=== PATIENT | female | born 1960 | race Caucasian/White ===

== ENCOUNTER → 2017-10-18 | Outpatient (CLI) | payer OTHER ==
[2017-09-17 11:10] VITALS: BMI 28.2
[~2017-10-18] MED LIST: ASPI81TA94 PO; ATOR10TA24 PO; CALC-488 PO; CHOL200059 PO; CIPR-214 PO; DOCO200C7 PO; FLUD0.1T12 PO; HYDR250V7 IJ; HYDROC5PT PO; MAGN250T34 PO
== END ==
LOC: LAB 09:43
PROVIDERS: ATTEND Internal Medicine
DX: E05.90 Thyrotoxicosis, unspecified without thyrotoxic crisis or storm (principal)
CPT/HCPCS: 36415; 84439; 84443; 84481

== ENCOUNTER → 2017-10-23 | Outpatient (CLI) | payer OTHER ==
[2017-09-17 11:10] VITALS: BMI 28.2
== END ==
LOC: LAB 08:36
PROVIDERS: ATTEND Internal Medicine
DX: E03.9 Hypothyroidism, unspecified (principal)
CPT/HCPCS: 36415; 83519; 84445

== ENCOUNTER → 2017-11-28 | Outpatient (CLI) | payer OTHER ==
[2017-09-17 11:10] VITALS: BMI 28.2
== END ==
LOC: LAB 08:04
PROVIDERS: ATTEND Internal Medicine
DX: E05.90 Thyrotoxicosis, unspecified without thyrotoxic crisis or storm (principal)
CPT/HCPCS: 36415; 82040; 82247; 82310; 82374; 82435; 82565; 82947; 84075; 84132; 84155; 84295; 84439; 84443; 84450; 84460; 84481; 84520

== ENCOUNTER → 2018-05-30 | Outpatient (CLI) | payer OTHER ==
[2017-09-17 11:10] VITALS: BMI 28.2
--- NOTE | 2018-05-31 11:45 | RADIOLOGY IMAGING REPORT ---
FACILITY: [facility] PATIENT NAME: GLENN HAMMOND : [id number] MR: [id number] V: [id number] EXAM DATE: [id number] ORDERING PHYSICIAN: ADI OROSCO TECHNOLOGIST: Sharon Ramirez PROCEDURE:BILATERAL DIGITAL SCREENING MAMMOGRAM WITH CAD ASSISTED INTERPRETATION & 3D TOMOSYNTHESIS COMPARISON:Prior mammograms 08/11/16, 06/30/13. INDICATIONS:SCREENING FINDINGS: Scattered fibroglandular tissue noted. There is a new 5mm asymmetry in the Right outer breast at middle depth seen on the CC view only. Otherwise no change compared to the prior. No suspicious microcalcification. DIAGNOSTIC CATEGORY 0--INCOMPLETE: NEED ADDITIONAL IMAGING EVALUATION. RECOMMENDATIONS: ADDITIONAL MAMMOGRAPHIC VIEWS REQUIRED: RIGHT BREAST. IMPRESSION: BIRADS 0: Incomplete. Needs additional imaging. Spot compression Right breast CC view, straight lateral Right breast view and Right breast Ultrasound (if needed) recommended for further evaluation. Dictated by: Baldomero Jaems on 05/31/2018 at 9:45 Transcribed by: YAHAIRA on 05/31/2018 at 9:58 Approved by: Baldomero Jamse on 05/31/2018 at 11:45 [facility]
== END ==
LOC: MAMO 01:50
PROVIDERS: ATTEND Physician Assistant
DX: Z12.31 Encounter for screening mammogram for malignant neoplasm of breast (principal); R92.8 Other abnormal and inconclusive findings on diagnostic imaging of breast
CPT/HCPCS: 77063; 77067

== ENCOUNTER → 2018-06-07 | Outpatient (CLI) | payer OTHER ==
[2017-09-17 11:10] VITALS: BMI 28.2
--- NOTE | 2018-06-10 08:23 | RADIOLOGY IMAGING REPORT ---
FACILITY: PATIENT NAME: GLENN HAMMOND : [id number] MR: [id number] V: [id number] EXAM DATE: ORDERING PHYSICIAN: ADI OROSCO TECHNOLOGIST: Danni Tejeda PROCEDURE:RIGHT DIGITAL DIAGNOSTIC MAMMOGRAM WITH CAD ASSISTED INTERPRETATION & 3D TOMOSYNTHESIS COMPARISON:Prior mammograms dated 05/30/18, 08/11/16, 06/30/13, 07/19/11 INDICATIONS:FURTHER EVAL FINDINGS: Patient returns for spot compression view in the Right CC projection. The small focal area of increased density in the lateral portion of the Right breast on the recent Right CC view appeared fully compressible & apparently represented a summation shadow. There was no demonstration of malignant appearing mass or calcification in the Right breast. DIAGNOSTIC CATEGORY 2--BENIGN FINDING. RECOMMENDATIONS: ROUTINE MAMMOGRAM AND CLINICAL EVALUATION. IMPRESSION: BIRADS 2: Benign finding. No significant abnormality is seen. Dictated by: Naomi Granados M.D. on 06/07/2018 at 15:16 Transcribed by: MARTIN on 06/07/2018 at 15:29 Approved by: Naomi Granados M.D. on 06/10/2018 at 8:23 [facility]
== END ==
LOC: MAMO 03:33
PROVIDERS: ATTEND Physician Assistant
DX: Z12.31 Encounter for screening mammogram for malignant neoplasm of breast (principal)
CPT/HCPCS: 77061; 77065

== ENCOUNTER 2019-03-27 22:36 | Emergency (ER) | payer OTHER ==
[2017-09-17 11:10] VITALS: Wt 85.3 kg
[~2019-03-27 22:36] MED LIST changes: -CALC-488 PO; +CALC-743 PO
[2019-03-27 23:00] VITALS: BP 138/95
--- NOTE | 2019-03-27 23:30 | ER Report ---
History and Physical Time Seen By MD: 22:40 Hx. of Stated Complaint: C/O "FLOATERS" AND FLASHING LIGHT IN RIGHT EYE HPI/ROS CHIEF COMPLAINT: Floaters HISTORY OF PRESENT ILLNESS: 58-year-old female presents with floaters in her right eye. She states that she was receiving laser treatment by a chiropractor this morning, wearing goggles, noted a single floater when she got up. She did not have any eye pain at the time. She is not note further issues, however, when she walked outside this evening and was dark, she noted multiple floaters in the periphery of her vision. This lasted a few minutes and she does not currently note any more floaters. Patient has had no pain with eye movements, has no eye pain, no curtain over her eye, no prior eye surgeries. She wears contacts daily. She has been wearing her glasses this evening. She did have recent optometry exam last week that was reportedly normal. She does not have bleeding or clotting problems. She does not have history of high blood pressure. She has not been having concerning headaches. She has no chest pain or difficulty breathing. She has no new weakness. She has had no trauma or falls. 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 Eyes: above ENT: No sore throat. Cardiovascular: No chest pain, no palpitations. Respiratory: No cough, no shortness of breath. Gastrointestinal: No abdominal pain, no vomiting. Genitourinary: no dysuria Musculoskeletal: No back pain. Skin: No rashes. Neurological: mild sinus headache/congestion, not out of range of nl for pt Remainder of the 14 system rev: Yes Allergies: Coded Allergies: sulfamethoxazole (Verified Allergy, Mild, rash, 03/27/19) trimethoprim (Verified Allergy, Mild, rash, 03/27/19) Home Meds Reported Medications Magnesium Oxide (MAGNESIUM) 250 Mg Tablet, 250 MG PO DAILY 09/15/17 Hydrocortisone Sod Succ/Pf (SOLU-CORTEF 250 MG VIAL) 250 Mg/2 Ml Vial, 250 MG IJ PRN, VIAL 09/15/17 Hydrocortisone (CORTEF) 5 Mg Tablet, 0.5 TAB PO BIDLS 09/15/17 Hydrocortisone (CORTEF) 5 Mg Tablet, 7.5 MG PO QAM at breakfast 09/15/17 Fludrocortisone Acetate (FLUDROCORTISONE ACETATE) 0.1 Mg Tablet, 0.5 TAB PO QODAY 09/15/17 Fludrocortisone Acetate (FLUDROCORTISONE ACETATE) 0.1 Mg Tablet, 0.1 MG PO QODAY 09/15/17 Docosahexanoic Acid (ALGAL OMEGA-3 DHA) 200 Mg Capsule, 1 TAB PO QDAY, CAPSULE 09/15/17 Cholecalciferol (Vitamin D3) (Vitamin D) 2,000 Unit Tablet, 1 TAB PO DAILY 09/15/17 Calcium Carbonate (CALCIUM CARBONATE) 500 Mg Tablet, 500 MG PO DAILY 09/15/17 Atorvastatin Calcium (LIPITOR) 10 Mg Tablet, 1 TAB PO QHS, TAB 09/15/17 Aspirin (ASPIRIN) 81 Mg Tab.chew, 81 MG PO QDAY, TAB.CHEW 09/15/17 Reviewed Nurses Notes: Yes Hx Smoking: No Hx Substance Use Disorder: No Hx Alcohol Use: Yes (rare) Constitutional Vital Sign - Last 24 Hours 03/27/19 03/27/19 03/27/19 03/27/19 22:40 22:44 23:00 23:06 Temp 98.1 Pulse 83 79 Resp 15 B/P (MAP) 154/94 (114) 154/94 138/95 (109) Pulse Ox 93 93 O2 Delivery Room Air Physical Exam General Appearance: The patient is alert, has no immediate need for airway protection and no signs of toxicity. [ ] Eyes: Pupils equal and round no pallor or injection. EOMI, no visual field deficit VA: 20/30 OS; 20/25 OD IOP R - 18 OD fundoscopic, nl disc ultrasound - post chamber without echogenicity, optic nerve nl diameter ENT, Mouth: Mucous membranes are moist. Respiratory: There are no retractions, lungs are clear to auscultation. Cardiovascular: Regular rate and rhythm. no m/r/g, no carotid bruits Neurological: alert, oriented, no gross defict Skin: Warm and dry, no rashes. Musculoskeletal: Neck is supple non tender. DIFFERENTIAL DIAGNOSIS: After history and physical exam differential diagnosis was considered for vitreous, retinal hemorrhage, cva, or other emergent etiology. Medical Decision Making ED Course/Re-evaluation ED Course pt presents with findings most c/w vitreous tear > retinal hemorrhage. I consulted pocket machine operator who offers f/u tomorrow. Pt will f/u with him or locally. Understands SRp's. Decision to Disposition Date: Mar 27, 2019 Decision to Disposition Time: 23:50 Depart Departure Latest Vital Signs Vital Signs Date Time Temp Pulse Resp B/P (MAP) Pulse Ox O2 Delivery O2 Flow Rate FiO2 03/27/19 23:06 79 93 03/27/19 23:00 138/95 (109) 03/27/19 22:44 98.1 15 Room Air Impression: Primary Impression: Floater, vitreous Condition: Improved Disposition: HOME OR SELF-CARE Referrals: ADI OROSCO PA-C (PCP) 5 Days PAMELA FABIAN MD 1 Day Patient Instructions: Visual Floaters (ED) Additional Instructions: You should be seen by an pocket machine operator tomorrow. You may either try to set up an appointment locally with Dr. Fabian's office, or follow up with the o phthalmologist I consulted, Dr. Walter Concepcion. He can see you at 1pm at his [facility] office. Please call his office to let them know either way, whether you will follow up with them at 1pm; the office number is [phone]. The office is located at; [address] [place] [address] , [facility] [place] [address] Please return immediately if you have any visual loss, pain, or concerning symptoms. Problem Qualifiers Primary Impression: Floater, vitreous Laterality: right Qualified Codes: H43.391 - Other vitreous opacities, right eye CHERELLE VILLALPANDO MD Mar 27, 2019 23:30
== END 2019-03-27 23:55 | disposition home or self-care (01) ==
LOC: ER 22:49
DX: H43.391 Other vitreous opacities, right eye (principal)
CPT/HCPCS: 99281